=== PATIENT | male | born 1970 | race Caucasian/White ===

== ENCOUNTER 2019-10-27 19:38 | Emergency (ER) | payer BC, SELFPAY ==
[2019-10-27 19:53] VITALS: BP 142/102; PULSE 100; RESP 14; TEMP 36.6; O2SAT 96; BMI 30.1
--- NOTE | 2019-10-27 19:54 | XR_ITS ---
PROCEDURE: XR HAND RT MIN 3V CLINICAL INDICATION: hand injury playing ball Posttraumatic pain COMPARISON: No exams were available for comparison FINDINGS: No acute fracture is apparent. Bony hypertrophy noted at the 3rd and 5th metacarpals distally consistent with old fractures. Exostosis involves the proximal aspect of the proximal phalanx of the 3rd finger along the ulnar side. Mild osteoarthritic changes are present at the 1st metacarpophalangeal joint IMPRESSION: No acute findings. Dictated b Tobi Lau MD 10/28/2019 05:36 Tobi Lau MD in [place] 10/28/2019 05:36
--- NOTE | 2019-10-27 20:09 | HMH.EDUTC ---
[facility] [place] Clinical Impression: Right hand pain Sprain of right hand Qualifiers: Encounter type: initial encounter Qualified Code(s): S63.91XA - Sprain of unspecified part of right wrist and hand, initial encounter Disposition: Home, Self-Care Condition on Discharge: Good Instructions: DI for Hand Injury, DI for Hand Pain Additional Instructions: Rest the extremity, apply ice for 15 minutes as tolerated three or four times per day, Elevate the extremity as tolerated while you are resting. Take ibuprofen for pain. Follow up with Dr. Fall. I put in a referral but you need to call her office and schedule an appointment. Follow up with your regular doctor. GO TO THE ER FOR ANY WORSENING SYMPTOMS Referrals: PCP,No [Primary Care Provider] - Imani Fall MD [Physician] - Time of Disposition: 20:26 Medical Decision Making - Medical Records Medical records reviewed: No: I reviewed the patient's medical records. - Graham Inquiry Pt receiving controlled substance: No Vital Signs: 10/27/19 19:53 10/27/19 20:40 Temperature 98 F 98 F Temperature Source Oral Oral Pulse Rate 100 H Pulse Rate [Radial] 100 H Respiratory Rate 14 14 Blood Pressure 142/102 H Blood Pressure [Right Arm] 142/102 H Blood Pressure Mean [Right Arm] 115 Blood Pressure Source Automatic Cuff Blood Pressure Source [Right Arm] Automatic Cuff Blood Pressure Position Sitting Blood Pressure Position [Right Arm] Sitting 02 Sat by Pulse Oximetry 96 Oxygen Delivery Method Room Air Room Air - Radiology Data #1 Image(s): Hand Image Reviewed: Yes I reviewed the patient's radiology image, Yes I have reviewed radiologist's interpretation Preliminary Findings: No Fracture Seen PROCEDURE: XR HAND RT MIN 3V CLINICAL INDICATION: hand injury playing ball Posttraumatic pain COMPARISON: No exams were available for comparison FINDINGS: No acute fracture is apparent. Bony hypertrophy noted at the 3rd and 5th metacarpals distally consistent with old fractures. Exostosis involves the proximal aspect of the proximal phalanx of the 3rd finger along the ulnar side. Mild osteoarthritic changes are present at the 1st metacarpophalangeal joint IMPRESSION: No acute findings. Dictated b Tobi Lau MD 10/28/2019 05:36 Tobi Lau MD in [place] 10/28/2019 05:36 [facility] [place] - General Stated complaint: AO [id number] @1830 R hand injury Time Seen by Provider: 10/27/19 20:09 Mode of Arrival: Ambulatory Source of Information: Patient Limitations: No Limitations Description of Symptoms (Recalled from Triage Doc. by RN): injured right hand playing ball HEENT Symptoms (Recalled from RN notes): No Resp Symptoms (Recalled from RN notes): No Skin Symptoms (Recalled from RN notes): No MS Symptoms (Recalled from RN notes): Yes Functional Status (Recalled from RN notes): wnl - History of Present Illness Provider Complaint: He states that earlier today he was playing softball when he fell came down on his right hand. He has had pain of the hand and the index and middle fingers since then. - Worker's Comp Is this a Worker's Comp case?: No [facility] History - Hepatitis A Screen Drug use history?: No High risk sexual behaviors?: No History of sexually transmitted infection?: No Currently employed?: No Childcare worker?: No Do you have indoor plumbing?: Yes Do you have electricity?: Yes Attestation statement:: This patient has been screened for Hepatitis A risk factors. I have reviewed the patient's past medical history: Yes - Social History Alcohol Intake: never Occupational Status: employed ROS Obtained: Yes All systems reviewed & no additional complaints - Constitutional Constitutional: Denies chills, Denies fever(s) - Musculoskeletal Musculoskeletal: Reports as per HPI - Integumentary/Breasts Skin/Breast: Denies redness, Denies rash, Denies wounds - Neurologic Neurologic: Denies tingling/numbness/burning
[2019-10-27 20:40] VITALS: BP 142/102; PULSE 100; RESP 14; TEMP 36.6; O2SAT 96
== END 2019-10-27 20:42 | disposition home or self-care (01) ==
PROVIDERS: Emergency Provider Nurse Practitioner Family
DX: S63.91XA Sprain of unspecified part of right wrist and hand, initial encounter (principal); W01.0XXA Fall on same level from slipping, tripping and stumbling without subsequent striking against object, initial encounter; Y93.64 Activity, baseball; Y92.328 Other athletic field as the place of occurrence of the external cause
CPT/HCPCS: 29125; 73130; 99202

== ENCOUNTER → 2021-02-26 15:54 | Outpatient (CLI) | payer BC, SELFPAY | PROVIDERS: Visit Provider Nurse Practitioner | DX: Z20.822 Contact with and (suspected) exposure to COVID-19 (principal) | CPT/HCPCS: C9803; U0003; U0005 ==

== ENCOUNTER 2021-09-15 09:16 | Emergency (ER) | payer BC, SELFPAY ==
[2021-09-15 09:20] VITALS: BP 159/105; PULSE 79; RESP 18; TEMP 36.8; O2SAT 96; BMI 28.8
--- NOTE | 2021-09-15 09:54 | HMH.EDUTC ---
[facility] – [place] Dis[place] Clinical Impression: Abdominal pain Qualifiers: Abdominal location: unspecified location Qualified Code(s): R10.9 - Unspecified abdominal pain Gastritis Qualifiers: Gastritis type: unspecified gastritis Chronicity: acute Gastritis bleeding: without bleeding Qualified Code(s): K29.00 - Acute gastritis without bleeding Disposition: Home, Self-Care Condition on Discharge: Good Instructions: DI for Gastritis, DI for Acute Abdominal Pain Additional Instructions: You have been evaluated for abdominal pain, possibly due to fatty liver disease or gastritis. Please try taking daily omeprazole. Avoid eating within 1 hour of bedtime. Follow-up with a primary care doctor in 1 to 2 days for symptom recheck. You may need to see a GI doctor eventually for an EGD if your symptoms do not get better. Try to avoid alcohol, caffeine, tobacco use. Return to the emergency department for any new or worsening symptoms, pain, vomiting, other concerns. Prescriptions: Omeprazole [Omeprazole 20mg Capsule] 20 mg PO DAILY #30 cap Transmission Status: Received by [id number] Referrals: Joe Brown MD [Staff Physician] - Provider,MD Renard [Primary Care Provider] - Medical Decision Making - Graham Inquiry Pt receiving controlled substance: No Graham was queried for this patient: No Vital Signs: 09/15/21 09:20 09/15/21 10:05 09/15/21 12:17 Temperature 98.3 F 98.3 F Temperature Source Oral Oral Pulse Rate Pulse Rate [Right Brachial] 79 103 H 73 Respiratory Rate 18 16 Blood Pressure Blood Pressure [Right Arm] 159/105 H 145/100 H 129/90 Blood Pressure Mean [Right Arm] 123 115 103 Blood Pressure Source [Right Arm] Automatic Cuff Blood Pressure Position [Right Arm] Sitting Sitting 02 Sat by Pulse Oximetry 96 98 98 Oxygen Delivery Method Room Air Room Air Room Air 09/15/21 12:31 09/15/21 13:02 09/15/21 13:30 Temperature 97.9 F Temperature Source Pulse Rate 68 Pulse Rate [Right Brachial] 75 68 Respiratory Rate 18 Blood Pressure 138/91 H Blood Pressure [Right Arm] 143/98 H 138/91 H Blood Pressure Mean [Right Arm] 113 106 Blood Pressure Source [Right Arm] Blood Pressure Position [Right Arm] Sitting 02 Sat by Pulse Oximetry 97 98 Oxygen Delivery Method Room Air Room Air - Lab Data Lab Results 09/15/21 10:11: WBC 5.5, RBC 5.12, Hgb 15.8, Hct 45.9, MCV 89.7, MCH 30.8, MCHC 34.4, RDW 13.0, Plt Count 268, MPV 7.0 L, Neut % (Auto) 65.5, Lymph % (Auto) 24.8, [place] % (Auto) 6.4, Eos % (Auto) 2.4, Baso % (Auto) 1.0, Neut # (Auto) 3.6, Lymph # (Auto) 1.4, [place] # (Auto) 0.4, Eos # (Auto) 0.1, Baso # (Auto) 0.1 09/15/21 10:11: Sodium 137, Potassium 4.1, Chloride 103, Carbon Dioxide 27, Anion Gap 11.1, BUN 9, Creatinine 0.90, Estimated Creat Clear 123, Estimated GFR 89, Est GFR ( Amer) 107, Glucose 155 H, Calcium 9.6, Total Bilirubin 1.9 H, AST 102 H, ALT 81 H, Alkaline Phosphatase 142 H, Total Protein 8.7 H, Albumin 4.7, Globulin 4.0 H, Albumin/Globulin Ratio 1.2, Lipase 146 09/15/21 10:11: Lactate 1.1 Result diagrams: 09/15/21 10:11 09/15/21 10:11 Orders (Tests/Meds): ED MEDICATIONS Discontinued Medications Generic Name Dose Route Start Last Admin Trade Name Freq PRN Reason Stop Dose Admin Belladonna Alkaloids 60 ml 09/15/21 12:11 09/15/21 12:18 Gi Cocktail 60ml Udc PO 09/15/21 12:12 60 ml ONCE ONE Administration Hydromorphone HCl 0.5 mg 09/15/21 18:53 09/15/21 18:55 Hydromorphone 2mg/Ml Syringe IV 09/15/21 18:54 Not Given ONCE ONE Iopamidol 75 ml 09/15/21 11:17 09/15/21 11:22 Iopamidol-370 (76%);100ml Bottle IV 09/15/21 11:18 75 ml ONCE ONE Administration Ondansetron HCl 4 mg 09/15/21 09:57 09/15/21 10:24 Ondansetron 4mg/2ml Vial IV 09/15/21 09:58 4 mg ONCE ONE Administration Sodium Chloride 500 ml 09/15/21 09:57 09/15/21 10:23 Sodium Chloride 0.9% 500ml Bag IV 09/15/21 09:58 500 ml ONCE ON
--- NOTE | 2021-09-15 10:00 | PC.NURSE ---
PATIENT SENT TO ER PER Carmina TORRE APRN FOR FURTHER EVALUATION. REPORT GIVEN TO Ha MOURA APRN BY Carmina TORRE APRN
[2021-09-15 10:05] VITALS: BP 145/100; PULSE 103; RESP 16; TEMP 36.8; O2SAT 98; BMI 27.1
--- NOTE | 2021-09-15 10:06 | HMH.EDGENADL ---
ED Disposition Clinical Impression: Abdominal pain Qualifiers: Abdominal location: unspecified location Qualified Code(s): R10.9 - Unspecified abdominal pain Gastritis Qualifiers: Gastritis type: unspecified gastritis Chronicity: acute Gastritis bleeding: without bleeding Qualified Code(s): K29.00 - Acute gastritis without bleeding Disposition: Home, Self-Care Condition on Discharge: Good Instructions: DI for Acute Abdominal Pain, DI for Gastritis Additional Instructions: You have been evaluated for abdominal pain, possibly due to fatty liver disease or gastritis. Please try taking daily omeprazole. Avoid eating within 1 hour of bedtime. Follow-up with a primary care doctor in 1 to 2 days for symptom recheck. You may need to see a GI doctor eventually for an EGD if your symptoms do not get better. Try to avoid alcohol, caffeine, tobacco use. Return to the emergency department for any new or worsening symptoms, pain, vomiting, other concerns. Prescriptions: Omeprazole [Omeprazole 20mg Capsule] 20 mg PO DAILY #30 cap Transmission Status: Pending to [id number] Referrals: ProviderRenard MD [Primary Care Provider] - Joe Brown MD [Staff Physician] - Time of Disposition: 13:20 - Critical Care Critical Care Time: No Attestation: On 09/15/21, the high probability of a clinically significant, sudden or life threatening deterioration of the following system(s) required my full and direct attention, intervention and personal management. The time I documented below is in addition to time spent performing reported procedures but includes the following listed in this critical care notation. Medical Decision Making - Medical Records Medical records reviewed: Yes: I reviewed the patient's medical records. - [place] Inquiry Pt receiving controlled substance: No Vital Signs: 09/15/21 09:20 09/15/21 10:05 09/15/21 12:17 Temperature 98.3 F 98.3 F Temperature Source Oral Oral Pulse Rate [Right Brachial] 79 103 H 73 Respiratory Rate 18 16 Blood Pressure [Right Arm] 159/105 H 145/100 H 129/90 Blood Pressure Mean [Right Arm] 123 115 103 Blood Pressure Source [Right Arm] Automatic Cuff Blood Pressure Position [Right Arm] Sitting Sitting 02 Sat by Pulse Oximetry 96 98 98 Oxygen Delivery Method Room Air Room Air Room Air 09/15/21 12:31 09/15/21 13:02 Temperature Temperature Source Pulse Rate [Right Brachial] 75 68 Respiratory Rate Blood Pressure [Right Arm] 143/98 H 138/91 H Blood Pressure Mean [Right Arm] 113 106 Blood Pressure Source [Right Arm] Blood Pressure Position [Right Arm] Sitting 02 Sat by Pulse Oximetry 97 98 Oxygen Delivery Method Room Air Room Air - Lab Data Lab Results 09/15/21 10:11: WBC 5.5, RBC 5.12, Hgb 15.8, Hct 45.9, MCV 89.7, MCH 30.8, MCHC 34.4, RDW 13.0, Plt Count 268, MPV 7.0 L, Neut % (Auto) 65.5, Lymph % (Auto) 24.8, [place] % (Auto) 6.4, Eos % (Auto) 2.4, Baso % (Auto) 1.0, Neut # (Auto) 3.6, Lymph # (Auto) 1.4, [place] # (Auto) 0.4, Eos # (Auto) 0.1, Baso # (Auto) 0.1 09/15/21 10:11: Sodium 137, Potassium 4.1, Chloride 103, Carbon Dioxide 27, Anion Gap 11.1, BUN 9, Creatinine 0.90, Estimated Creat Clear 123, Estimated GFR 89, Est GFR ( Amer) 107, Glucose 155 H, Calcium 9.6, Total Bilirubin 1.9 H, AST 102 H, ALT 81 H, Alkaline Phosphatase 142 H, Total Protein 8.7 H, Albumin 4.7, Globulin 4.0 H, Albumin/Globulin Ratio 1.2, Lipase 146 09/15/21 10:11: Lactate 1.1 Result diagrams: 09/15/21 10:11 09/15/21 10:11 Orders (Tests/Meds): ED MEDICATIONS Discontinued Medications Generic Name Dose Route Start Last Admin Trade Name Freq PRN Reason Stop Dose Admin Belladonna Alkaloids 60 ml 09/15/21 12:11 09/15/21 12:18 Gi Cocktail 60ml Udc PO 09/15/21 12:12 60 ml ONCE ONE Administration Iopamidol 75 ml 09/15/21 11:17 09/15/21 11:22 Iopamidol-370 (76%);100ml Bottle IV 09/15/21 11:18 75 ml ONCE ONE Administration Ondansetr
--- NOTE | 2021-09-15 10:11 | CT_ITS ---
FINAL REPORT CLINICAL HISTORY: abd pain FINDINGS: CT OF THE ABDOMEN AND PELVIS WITH CONTRAST Axial CT images of the abdomen and pelvis were obtained after the administration of IV contrast. Coronal reformatted images were also obtained and reviewed.This study was performed with techniques to keep radiation doses as low as reasonably achievable (ALARA). Individualized dose reduction techniques using automated exposure control or adjustment of mA and/or kV according to the patient's size were employed. Abdomen: There is mild bibasilar atelectasis. The heart is normal in size. The liver is fatty infiltrated. The gallbladder is present. The spleen is unremarkable. No adrenal mass is present. The pancreas has an unremarkable appearance. The kidneys are normal, without evidence of mass or hydronephrosis. The aorta is normal in caliber. There is no free fluid or adenopathy. No mass or abnormal fluid collection is seen. Pelvis: The appendix normal. There is mild urinary bladder wall thickening which may be inflammatory. There is no evidence of mass or adenopathy. There is scattered diverticula without evidence of diverticulitis. There is no evidence of bowel obstruction. IMPRESSION: Fatty liver. Scattered diverticula without evidence of diverticulitis. Mild urinary bladder wall thickening may be inflammatory. Reviewed, Interpreted and Dictated by Tadeo Ellis III, MD Transcribed by Eliana Benson Authenticated and [facility] [place]
[2021-09-15 10:24] LABS: Basophils # 0.1 K/mm3 (0-0.2); Eosinophils # 0.1 K/mm3 (0.0-0.4); Eosinophils % 2.4 % (0.1-12.0); Hematocrit 45.9 % (42.0-52.0); Hemoglobin 15.8 g/dL (14.1-18.0); Lymphocytes # 1.4 K/mm3 (0.7-4.5); Lymphocytes % 24.8 % (10-50); Mean Corpuscular HGB Conc 34.4 g/dL (31.8-35.4); Mean Corpuscular Hemoglobin 30.8 pg (27.0-31.2); Mean Corpuscular Volume 89.7 fl (80-94); Monocytes # 0.4 K/mm3 (0.1-1.0); Monocytes % 6.4 % (1.7-9.3); Neutrophils # 3.6 K/mm3 (1.8-7.8); Neutrophils % 65.5 % (37.0-80.0); Platelet Count 268 K/mm3 (142-424); Red Blood Count 5.12 M/mm3 (4.60-6.20); White Blood Count 5.5 K/mm3 (4.8-10.8)
--- NOTE | 2021-09-15 10:24 | PC.NURSE ---
pt offered warm blankets pt declined
[2021-09-15 10:26] LABS: Chloride 103 mmol/L (98-107); Potassium 4.1 mmoL/L (3.5-5.1); Sodium 137 mmol/L (136-145)
[2021-09-15 10:28] LABS: Blood Urea Nitrogen 9 mg/dl (9-20)
[2021-09-15 10:29] LABS: Alanine Aminotransferase 81 U/L (12-78); Albumin Level 4.7 g/dl (3.5-5.0); Albumin/Globulin Ratio 1.2 (1.1-1.8); Alkaline Phosphatase 142 U/L (38-126); Anion Gap 11.1 mEq/L (5-15); Aspartate Amino Transferase 102 U/L (17-59); Bilirubin,Total 1.9 mg/dl (0.2-1.3); Calcium 9.6 mg/dl (8.4-10.2); Carbon Dioxide 27 mmol/L (22.0-30.0); Creatinine Clearance Estimated 123 mL/min (50-200); Estimated Glomerular Filt Rate 89 ml/min (>60); GFR (African American) 107 ML/MIN (>60); Glucose 155 mg/dl (74-100); Lactic Acid 1.1 mmol/L (0.7-2.1); Lipase 146 U/L (23-300); Total Protein,Serum 8.7 g/dl (6.3-8.2)
--- NOTE | 2021-09-15 11:14 | PC.NURSE ---
PT UPDATED ON PLAN OF CARE
--- NOTE | 2021-09-15 12:16 | PC.NURSE ---
PT UPDATED ON PLAN OF CARE
[2021-09-15 12:17] VITALS: BP 129/90; PULSE 73; O2SAT 98
[2021-09-15 12:31] VITALS: BP 143/98; PULSE 75; O2SAT 97
--- NOTE | 2021-09-15 12:34 | PC.NURSE ---
CALLED XRAY REGARDING CT READING
[2021-09-15 13:02] VITALS: BP 138/91; PULSE 68; O2SAT 98
--- NOTE | 2021-09-15 13:18 | PC.NURSE ---
AT BEDSIDE, DRINK PROVIDED
[2021-09-15 13:30] VITALS: BP 138/91; PULSE 68; RESP 18; TEMP 36.6
== END 2021-09-15 13:30 | disposition home or self-care (01) ==
LOC: UTC 09:18 → ER 09:55
PROVIDERS: Emergency Provider Emergency Medicine
DX: K29.00 Acute gastritis without bleeding; Z88.1 Allergy status to other antibiotic agents
CPT/HCPCS: 74177; 80053; 83605; 83690; 85025; 96374; 99284; J2405; Q9967

== ENCOUNTER 2022-09-01 16:26 | Emergency (ER) | payer MEDICARE, BC, SELFPAY ==
[2022-09-01] VITALS (7 sets, daily range): BP systolic 95–113; BP diastolic 56–83; PULSE 75–81; RESP 17; TEMP 36.8; O2SAT 97–98; BMI 29.2
--- NOTE | 2022-09-01 16:36 | CT_ITS ---
PROCEDURE INFORMATION: Exam: CT Head Without Contrast Exam date and time: 09/01/2022 4:49 PM Age: 51 years old Clinical indication: Injury or trauma; Fall; Abrasion; Jaw or chin; Additional info: Trauma from fall TECHNIQUE: Imaging protocol: Computed tomography of the head without contrast. Radiation optimization: All CT scans at this facility use at least one of these dose optimization techniques: automated exposure control; mA and/or kV adjustment per patient size (includes targeted exams where dose is matched to clinical indication); or iterative reconstruction. REPORTING DATA: Count of CT and Cardiac NM exams in prior 12 months: This patient has received [address] and 0 known cardiac nuclear medicine studies in the 12 months prior to the current study. COMPARISON: No relevant prior studies available. FINDINGS: Limitations: Axial soft tissue algorithm and sagittal reformatted imaging of the head are not provided, significantly limiting sensitivity of exam. Brain: No large intra- or extra-axial fluid collection. No significant mass effect or midline shift. Horowitz-white matter differentiation is grossly intact. Cerebral ventricles: No evidence of hydrocephalus. Paranasal sinuses: No air fluid levels in the visualized paranasal sinuses. Mastoid air cells: Visualized mastoid air cells are well aerated. Bones/joints: No evidence of depressed calvarial or skull base fracture. Soft tissues: Unremarkable. IMPRESSION: No evidence of acute intracranial abnormality within the limits of this exam.
--- NOTE | 2022-09-01 16:36 | CT_ITS ---
PROCEDURE INFORMATION: Exam: CT Cervical Spine Without Contrast Exam date and time: 09/01/2022 4:52 PM Age: 51 years old Clinical indication: Injury or trauma; Fall; Other: Pain; Additional info: Trauma from fall TECHNIQUE: Imaging protocol: Computed tomography of the cervical spine without contrast. Radiation optimization: All CT scans at this facility use at least one of these dose optimization techniques: automated exposure control; mA and/or kV adjustment per patient size (includes targeted exams where dose is matched to clinical indication); or iterative reconstruction. REPORTING DATA: Count of CT and Cardiac NM exams in prior 12 months: This patient has received [address] and 0 known cardiac nuclear medicine studies in the 12 months prior to the current study. COMPARISON: CT FACIAL BONES WO CON 09/01/2022 4:49 PM FINDINGS: Bones/joints: No evidence of acute fracture or malalignment. Lungs: No acute abnormality or suspicious mass lesion in the visualized lung apices. Soft tissues: Unremarkable. IMPRESSION: No evidence of acute osseous abnormality in the cervical spine.
--- NOTE | 2022-09-01 16:36 | CT_ITS ---
PROCEDURE INFORMATION: Exam: CT Maxillofacial Without Contrast Exam date and time: 09/01/2022 4:49 PM Age: 51 years old Clinical indication: Injury or trauma; Fall; Laceration; Jaw; Not specified; Without residual foreign body; Additional info: Trauma from fall TECHNIQUE: Imaging protocol: Computed tomography of the face without contrast. Radiation optimization: All CT scans at this facility use at least one of these dose optimization techniques: automated exposure control; mA and/or kV adjustment per patient size (includes targeted exams where dose is matched to clinical indication); or iterative reconstruction. REPORTING DATA: Count of CT and Cardiac NM exams in prior 12 months: This patient has received [address] and 0 known cardiac nuclear medicine studies in the 12 months prior to the current study. COMPARISON: No relevant prior studies available. FINDINGS: Limitations: Coronal and sagittal reformatted imaging with bone algorithm not provided, limiting sensitivity of exam. Photon starvation and beam hardening artifact from dental hardware severely degrades images, limiting visualization of surrounding structures. Orbital cavities: Orbits are normal. Globes are unremarkable. Bones/joints: No evidence of acute fracture or malalignment. Bilateral temporomandibular joints are congruent. Pterygoid plates are intact. Paranasal sinuses: No air-fluid levels. Soft tissues: Soft tissue laceration and edema overlying the chin. No evidence of radiopaque foreign body. Dental: Numerous dental caries and multiple periapical lucencies compatible with odontogenic abscesses, some with surrounding cortical erosion in both the mandible and maxilla. IMPRESSION: 1. No evidence of acute traumatic injury in the maxillofacial bones. 2. Numerous dental caries and multiple periapical lucencies compatible with odontogenic abscesses, some with surrounding cortical erosion in both the mandible and maxilla. No evidence of soft tissue abscess.
--- NOTE | 2022-09-01 16:38 | XR_ITS ---
PROCEDURE INFORMATION: Exam: XR Right Wrist Exam date and time: 09/01/2022 4:51 PM Age: 51 years old Clinical indication: Pain and injury or trauma; Fall; Swelling (edema); Wrist; Bilateral; Additional info: Trauma from fall TECHNIQUE: Imaging protocol: Radiologic exam of the right wrist. Views: 3 or more views. COMPARISON: CR XR HAND RT MIN 3V 10/27/2019 7:53 PM FINDINGS: Bones/joints: Bony remodeling in the 5th metacarpal compatible with prior boxer's fracture. Hypertrophic degenerative changes at the 4th and 5th carpometacarpal joints, not significantly changed from 10/27/2019 hand radiograph and likely chronic sequelae of prior trauma. Questionable cortical step-off along the anterior lunate seen on lateral view only. No definite acute fracture or malalignment. Soft tissues: Soft tissue edema noted. IMPRESSION: 1. Significant soft tissue edema with no definitive evidence of acute osseous abnormality in the right wrist. 2. Questionable cortical step-off along the anterior lunate seen on lateral view only. Please correlate with point tenderness. CT could better evaluate if clinically indicated. 3. Bony remodeling in the 5th metacarpal compatible with prior boxer's fracture.
--- NOTE | 2022-09-01 17:13 | PC.NURSE ---
Per physician, VO discontinue XR Cervical due to CT of C-spine ordered.
--- NOTE | 2022-09-01 17:20 | HMH.EDGENADL ---
Discharge Plan Disposition Chief Complaint: Fall Prescriptions Prescriptions: No Action omeprazole 20 MG capsule,delayed release(DR/EC) 20 mg PO DAILY Qty: 30 0RF Referrals Follow up/Referrals: Provider,Referral, [Primary Care Provider] - See instructions Discharge ED Provider: Niall Ag General Adult HPI General Chief complaint: Fall Stated complaint: AO 09/01 fall, lac on chin and left arm Time Seen by Provider: 09/01/22 16:51 Mode of Arrival: Ambulatory Source of Information: Patient Limitations: No Limitations Description of Symptoms (Recalled from ER Triage Doc. by RN): 51 M presents from home after tripping over his dogs while walking outside. Patient was seen by EMS on scene and came to ER via POV. Patient denies LOC, and was able to get up right after it happened. Patient does not take blood thinners. He reports a history of ALS. History of Present Illness HPI narrative: 51-year-old white male presents with an injury to his chin and left wrist following a fall at his home. The patient was dealing with the dogs tripped and landed on his right wrist and his chin. 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 He has no additional weakness or numbness since the fall as compared with before the fall. Related Data Previous Rx's Medication Instructions Recorded omeprazole 20 mg capsule,delayed 20 mg PO DAILY #30 caps 09/15/21 release Allergies Allergy/AdvReac Type Severity Reaction Status Date / Time amoxicillin Allergy Verified 09/15/21 09:34 [facility] Disclaimer: The information contained in this section may have been updated after the patient was seen, as this information can be updated by other users. Social History Smoking Status: Never smoker alcohol intake: never current occupational status: other Travel in the last 8 weeks: None ROS Obtained: Yes Systems reviewed as appropriate & no additional complaints except as documented Physical Exam General General appearance: alert and in no apparent distress Respiratory Respiratory exam: Present normal lung sounds bilaterally Cardiovascular Cardiovascular exam: Present regular rate and normal rhythm Neurological Exam Neurological exam: Present alert, oriented X3, CN II-XII intact and motor sensory deficit (Baseline) Medical Decision Making Medical Records MR Comment: 51-year-old white male sustained a fall earlier today landed on his right wrist and his chin primarily. Evaluations have included CT of his head facial cervical and x-ray of his right wrist. CTs were all negative however his right wrist raises the possibility of a fracture of one of the carpal bones. The patient is complaining of pain primarily in his teeth for which we will treat with Toradol 60 mg IM followed by prescription for naproxen 375 p.o. twice daily. We have repaired a laceration of his chin with running locking stitches of 4-0 Ethilon. Patient is to follow-up with his primary care provider for review and follow-up and treatment plan moving forward. He and his are present all questions are answered. Graham Inquiry Pt receiving controlled substance: No Vital Signs: 09/01/22 16:27 09/01/22 16:36 09/01/22 17:00 Temperature 98.2 F Temperature Source Oral Pulse Rate 75 79 Pulse Rate [Left] 81 Respiratory Rate 17 Blood Pressure 110/83 106/63 L Blood Pressure [Right Arm] 110/83 Blood Pressure Mean 90 84 Blood Pressure Mean [Right Arm] 92 Blood Pressure Source [Right Arm] Automatic Cuff Blood Pressure Position [Right Arm] Supine 02 Sat by Pulse Oximetry 97 97 98 Oxygen Delivery Method Room Air Room Air Room Air 09/01/22 17:30 09/01/22 18:00 Temperature Temperature Source Pulse Rate 80 Pulse Rate [Left] Respiratory Rate Blood Pressure 104/56 L 113/70 Blood Pressure [Right Arm] Blood Pressure Mean 72 77 Blood Pressure Mean [Right Arm] Blood Pr
--- NOTE | 2022-09-01 17:55 | PC.NURSE ---
Updated patient; Call garcia within reach
--- NOTE | 2022-09-01 18:15 | PC.NURSE ---
at bedside for laceration repair.
--- NOTE | 2022-09-01 18:29 | PC.NURSE ---
pt refused wrist splint.
--- NOTE | 2022-09-01 18:51 | PC.NURSE ---
Abrasions x 2 to left forearm cleansed with NS. Triple abx ointment applied with dry dressing. Pt tolerated well.
== END 2022-09-01 18:51 | disposition home or self-care (01) ==
PROVIDERS: Emergency Provider Emergency Medicine; PCP Family Medicine
DX: S01.81XA Laceration without foreign body of other part of head, initial encounter (principal); W01.0XXA Fall on same level from slipping, tripping and stumbling without subsequent striking against object, initial encounter; R22.41 Localized swelling, mass and lump, right lower limb; Z23 Encounter for immunization
CPT/HCPCS: 12013; 70450; 70486; 72040; 72125; 73110; 90715; 96372; 99284; 99285

== ENCOUNTER 2022-09-08 14:24 | Emergency (ER) | payer BC, MEDICARE, SELFPAY ==
[2022-09-08 14:30] VITALS: BP 115/74; PULSE 98; RESP 17; TEMP 36.7; O2SAT 98; BMI 25.1
[2022-09-08 14:35] VITALS: BP 115/74; PULSE 98; RESP 17; TEMP 36.7; O2SAT 98
== END 2022-09-08 14:38 | disposition home or self-care (01) ==
LOC: UTC 14:28
PROVIDERS: Emergency Provider Nurse Practitioner Family; PCP Family Medicine
DX: S01.81XD Laceration without foreign body of other part of head, subsequent encounter (principal); Z48.02 Encounter for removal of sutures

== ENCOUNTER 2023-02-02 16:38 | Emergency (ER) | payer MEDICARE, BC, SELFPAY ==
[2023-02-02 16:39] VITALS: BP 140/88; PULSE 77; RESP 18; TEMP 36.6; O2SAT 97; BMI 28.4
--- NOTE | 2023-02-02 16:46 | CT_ITS ---
PROCEDURE INFORMATION: Exam: CT Head Without Contrast Exam date and time: 02/02/2023 4:56 PM Age: 52 years old Clinical indication: Injury or trauma; Fall; Blunt trauma (contusions or hematomas); Additional info: Fall, forehead trauma TECHNIQUE: Imaging protocol: Computed tomography of the head without contrast. Radiation optimization: All CT scans at this facility use at least one of these dose optimization techniques: automated exposure control; mA and/or kV adjustment per patient size (includes targeted exams where dose is matched to clinical indication); or iterative reconstruction. REPORTING DATA: Count of CT and Cardiac NM exams in prior 12 months: This patient has received 3 known CTs and 0 known cardiac nuclear medicine studies in the 12 months prior to the current study. COMPARISON: CT HEAD/BRAIN WO CON 09/01/2022 4:49 PM FINDINGS: Brain: The visualized basilar cisterns are patent. The cortical/white matter interfaces are preserved throughout the brain. There is no evidence of mass, mass effect or midline shift. There is no evidence of acute hemorrhage within the brain parenchyma or the subarachnoid space. The craniocervical junction is within range of normal. No significant white matter lucencies. Cerebral ventricles: The ventricular system is normal in size and distribution. Paranasal sinuses: Minor mucoperiosteal thickening involves the inferior frontal sinuses and left maxillary sinus.The visualized portions of the sinuses are otherwise clear. Mastoid air cells: The mastoid sinuses are normal. Orbital cavities: The orbits are normal. Bones/joints: There is no evidence of acute fracture. Soft tissues: There is minor fat stranding and soft tissue thickening in the left parasagittal supraorbital region consistent with post contusive edema/hematoma. IMPRESSION: 1. No acute intracranial abnormality. 2. Minor fat stranding and soft tissue thickening in the left parasagittal supraorbital region consistent with post contusive edema/hematoma.
--- NOTE | 2023-02-02 16:47 | HMH.EDGENADL ---
Discharge Plan Disposition Patient Disposition: Home, Self-Care Chief Complaint: Wound/Laceration Prescriptions Prescriptions: No Action omeprazole 20 MG capsule,delayed release(DR/EC) 20 mg PO DAILY Qty: 30 0RF naproxen 375 mg tablet 375 mg PO BID Qty: 20 0RF Referrals Follow up/Referrals: Wolfgang Bauer MD [Primary Care Provider] - See instructions Fernando Sevilla DO [Staff Physician] - See instructions Activity Restrictions/Add. Instructions Additional Instructions/Restrictions: At this time it was felt you are safe to be discharged home. If new or worsening symptoms please do not hesitate to return the emergency department. Please follow-up with your family doctor in 7 to 10 days for suture removal. Please wear your sling for your clavicle fracture and schedule follow-up with Dr. Sevilla. Clinical Impressions Clinical Impression: Blunt head trauma, Forehead laceration, Clavicle fracture Instructions Patient Instructions: DI for Laceration Repair Discharge ED Provider: Colin Mendoza General Adult HPI General Chief complaint: Wound/Laceration Stated complaint: AO11/ fall forehead lac, LT shoulder pain Time Seen by Provider: 02/02/23 16:42 History of Present Illness HPI narrative: Patient is a 52-year-old male with past medical history of ALS who presents emergency department for evaluation of traumatic injury sustained in a fall. Patient tripped on carpet and struck his head on the door frame, no loss of consciousness with resultant trauma over his forehead and left shoulder. Patient is complaining of left shoulder pain as well as open wounds on his forehead. No other acute complaints at this time. At baseline patient is ambulatory however has difficulty moving his arms which contributed to him not able to brace himself for his fall. Tdap up-to-date. Related Data Previous Rx's Medication Instructions Recorded omeprazole 20 mg capsule,delayed 20 mg PO DAILY #30 caps 09/15/21 release naproxen 375 mg tablet 375 mg PO BID #20 tabs 09/01/22 Allergies Allergy/AdvReac Type Severity Reaction Status Date / Time amoxicillin Allergy Verified 09/15/21 09:34 [facility] Disclaimer: The information contained in this section may have been updated after the patient was seen, as this information can be updated by other users. Social History Smoking Status: Never smoker alcohol intake: never current occupational status: other Travel in the last 8 weeks: None ROS Obtained: Yes Systems reviewed as appropriate & no additional complaints except as documented Physical Exam General General appearance: alert and in no apparent distress Head Head exam: normocephalic and other (5 cm serpiginous laceration over the forehead, 2.5 cm linear laceration inferior to the serpiginous laceration on the forehead, oozing blood.) Eye Eye exam: Present PERRL and EOMI ENT ENT exam: Present mucous membranes moist Neck Neck exam: Present normal inspection Chest Chest inspection: Present normal inspection and symmetric chest wall rise Respiratory Respiratory exam: Present normal lung sounds bilaterally; Absent respiratory distress Cardiovascular Cardiovascular exam: Present regular rate and normal rhythm Abdominal Exam Abdominal exam: Present soft; Absent tenderness Extremities Exam Extremities exam: Present normal inspection and other (Limited painful range of motion at the left shoulder secondary to pain. Palpable 2+ left radial pulse.) Neurological Exam Neurological exam: Present alert and oriented X3 Psychiatric Psychiatric exam: Present normal affect Skin Skin exam: Present warm and dry Medical Decision Making Graham Inquiry Pt receiving controlled substance: No Vital Signs: 02/02/23 16:39 Temperature 97.8 F Temperature Source Oral Pulse Rate [Right] 77 Respiratory Rate 18 Blood Pressure [Right Arm] 140/88 Blood Pressure Mean [Right Arm] 105 Blood Pressure Source [Right
--- NOTE | 2023-02-02 16:48 | XR_ITS ---
PROCEDURE INFORMATION: Exam: XR Left Humerus Exam date and time: 02/02/2023 4:55 PM Age: 52 years old Clinical indication: Injury or trauma; Fall; Blunt trauma (contusions or hematomas); Arm, upper; Left TECHNIQUE: Imaging protocol: Radiologic exam of the left humerus. Views: 2 or more views. COMPARISON: CR XR SHOULDER LT MIN 2V 02/02/2023 4:52 PM FINDINGS: Bones/joints: There is an acute nondisplaced fracture involving the distal left clavicle, approximately 12 mm proximal to the AC joint. No significant displacement or angulation. No additional acute fractures. Mild degenerative changes involve the AC joint. Mild degenerative changes involve the glenohumeral joint. No glenohumeral dislocation. Soft tissues: No significant soft tissue edema. No subcutaneous emphysema or radiopaque foreign bodies. Visualized left lung appears clear. No pneumothorax. IMPRESSION: Acute nondisplaced fracture involving the distal left clavicle.
--- NOTE | 2023-02-02 16:48 | XR_ITS ---
PROCEDURE INFORMATION: Exam: XR Left Shoulder Exam date and time: 02/02/2023 4:52 PM Age: 52 years old Clinical indication: Injury or trauma; Fall; Blunt trauma (contusions or hematomas); Shoulder; Left TECHNIQUE: Imaging protocol: Radiologic exam of the left shoulder. Views: 2 or more views. COMPARISON: CT CERVICAL SPINE WO CON 09/01/2022 4:52 PM FINDINGS: Bones/joints: There is an acute nondisplaced fracture involving the distal left clavicle, approximately 12 mm proximal to the AC joint. No significant displacement or angulation. No additional acute fractures. Mild degenerative changes involve the AC joint. Mild degenerative changes involve the glenohumeral joint. No glenohumeral dislocation. Soft tissues: No significant soft tissue edema. No subcutaneous emphysema or radiopaque foreign bodies. Visualized left lung appears clear. No pneumothorax. IMPRESSION: Acute nondisplaced fracture involving the distal left clavicle.
[2023-02-02 17:45] VITALS: BP 141/86; PULSE 78; RESP 16; TEMP 36.6; O2SAT 98
--- NOTE | 2023-02-02 19:08 | PC.NURSE ---
Accessed pts chart to get information for orthopedic paperwork. CR
== END 2023-02-02 17:48 | disposition home or self-care (01) ==
PROVIDERS: Emergency Provider Emergency Medicine; PCP Family Medicine
DX: S09.8XXA Other specified injuries of head, initial encounter (principal); S01.81XA Laceration without foreign body of other part of head, initial encounter; S42.035A Nondisplaced fracture of lateral end of left clavicle, initial encounter for closed fracture; W01.198A Fall on same level from slipping, tripping and stumbling with subsequent striking against other object, initial encounter
CPT/HCPCS: 12014; 70450; 73030; 73060; 96374; 99284

== ENCOUNTER 2023-02-12 17:08 | Emergency (ER) | payer MEDICARE, BC, SELFPAY ==
[2023-02-12 17:10] VITALS: BP 131/88; PULSE 76; RESP 18; TEMP 37.1; O2SAT 99; BMI 27.1
[2023-02-12 17:17] VITALS: BP 131/88; PULSE 76; RESP 18; TEMP 37.1; O2SAT 99
== END 2023-02-12 17:19 | disposition home or self-care (01) ==
LOC: UTC 17:13
PROVIDERS: Emergency Provider Nurse Practitioner; PCP Physician Assistant
DX: Z48.02 Encounter for removal of sutures (principal); S01.81XA Laceration without foreign body of other part of head, initial encounter

== ENCOUNTER → 2023-03-07 14:01 | Outpatient (CLI) | payer MEDICARE, BC, SELFPAY ==
--- NOTE | 2023-03-07 14:08 | XR_ITS ---
FINAL REPORT TECHNIQUE: Left clavicle 2 views CLINICAL HISTORY: Left Clavicle fx COMPARISON: 02/02/2023 FINDINGS: LEFT CLAVICLE: Views of the left clavicle were obtained in this patient with a history of distal left clavicle fracture. There has been slight bone resorption at the fracture site in the distal clavicle with increased callus formation. The bony alignment remains normal. No new fracture or dislocation is identified. IMPRESSION: Left clavicular fracture with slight increased callus formation since the prior films of February 02. Reviewed, Interpreted and Dictated by Sami Fields MD Transcribed by Thelma Cortez Authenticated and [facility]
== END ==
PROVIDERS: PCP Family Medicine; Visit Provider Orthopaedic Surgery
DX: S42.002A Fracture of unspecified part of left clavicle, initial encounter for closed fracture (principal); Y99.9 Unspecified external cause status
CPT/HCPCS: 73000

== ENCOUNTER 2023-06-13 15:36 | Emergency (ER) | payer MEDICARE, BC, SELFPAY ==
[2023-06-13 16:10] VITALS: BP 121/80; PULSE 84; RESP 16; TEMP 36.6; O2SAT 100; BMI 29.4
[2023-06-13 16:41] VITALS: BP 121/80; PULSE 84; RESP 16; TEMP 36.6; O2SAT 100
--- NOTE | 2023-06-13 16:41 | PC.NURSE ---
Removed 5 jero from head
== END 2023-06-13 16:41 | disposition home or self-care (01) ==
LOC: UTC 15:42
PROVIDERS: Emergency Provider Nurse Practitioner; PCP Family Medicine
DX: Z48.02 Encounter for removal of sutures (principal)

== ENCOUNTER 2024-01-03 03:41 | Emergency (ER) | payer MEDICARE, BC, SELFPAY ==
[2024-01-03 03:43] VITALS: BP 155/94; PULSE 66; RESP 20; TEMP 36.4; O2SAT 98; BMI 28.1
--- NOTE | 2024-01-03 04:05 | ECG_ITS ---
APPROVED REPORT Exam: Resting ECG HR:63 bpm ECG Measurements Heart Rate 63 AXES ME 184 P 58 QRSd 90 QRS 36 QT 407 T 88 QTc 413 Conclusion SINUS RHYTHM NONSPECIFIC ST & T-WAVE ABNORMALITY BORDERLINE ECG UNCONFIRMED REPORT Electronically signed by : CORINNE KIRKPATRICK, 01/03/2024 05:34:56
--- NOTE | 2024-01-03 04:11 | CT_ITS ---
PROCEDURE INFORMATION: Exam: CTA Abdomen and Pelvis With Contrast Exam date and time: 01/03/2024 4:48 AM Age: 53 years old Clinical indication: Abdominal pain; Acute; Additional info: Severe abd pain radiating to back TECHNIQUE: Imaging protocol: Computed tomographic angiography of the abdomen and pelvis with contrast. Exam focused on the arteries. 3D rendering (Not supervised by radiologist): MIP and/or 3D reconstructed images were created by the technologist. Radiation optimization: All CT scans at this facility use at least one of these dose optimization techniques: automated exposure control; mA and/or kV adjustment per patient size (includes targeted exams where dose is matched to clinical indication); or iterative reconstruction. Contrast material: ISOVUE; Contrast volume: 80 ml; Contrast route: INTRAVENOUS (IV); COMPARISON: CT ABDOMEN PELVIS W CON 09/15/2021 10:50 AM FINDINGS: Aorta: No aortic aneurysm. No aortic dissection. 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 However this is not significantly changed from the prior study. Renal arteries: No occlusion or significant stenosis. Right iliac arteries: No occlusion or significant stenosis. Left iliac arteries: No occlusion or significant stenosis. Liver: No mass. Gallbladder and biliary ducts: The gallbladder is hydropic. The gallbladder is hydropic however no stones wall thickening or pericholecystic fluid is identified. Pancreas: Unremarkable. No mass. No ductal dilation. Spleen: Unremarkable. No splenomegaly. Adrenal glands: Unremarkable. No mass. Kidneys and ureters: Unremarkable. No solid mass. No hydronephrosis. Stomach and bowel: No bowel wall thickening ileus obstruction or other acute process is identified. Appendix: No evidence of appendicitis. Intraperitoneal space: Unremarkable. No free air. No significant fluid collection. Lymph nodes: Unremarkable. No enlarged lymph nodes. Urinary bladder: Unremarkable. No mass. Reproductive: Unremarkable as visualized. Bones/joints: Mild degenerative disc disease is noted. Soft tissues: Unremarkable. IMPRESSION: 1. 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 2. The superior mesenteric artery and inferior mesenteric artery are unremarkable, no bowel or bowel wall changes are noted to suggest ischemia or other acute process.
[2024-01-03] MEDS: ONDANSETRON 4MG/2ML VIAL 4 MG IV (04:15)
[2024-01-03] MEDS: BELLADONNA ALKALOIDS 60 ML ML PO (04:16)
[2024-01-03] MEDS: KETOROLAC 30MG/ML VIAL 30 MG IV (04:16)
[2024-01-03] MEDS: ACETAMINOPHEN 1,000MG/100ML VIAL 1000 MG IV (04:16)
[2024-01-03 04:19] LABS: Basophils # 0.1 K/mm3 (0-0.2); Basophils % 0.8 % (0.1-2.0); Eosinophils # 0.3 K/mm3 (0.0-0.4); Eosinophils % 3.5 % (0.1-12.0); Hemoglobin 15.6 g/dL (14.1-18.0); Lymphocytes # 1.4 K/mm3 (0.7-4.5); Lymphocytes % 14.7 % (10-50); Mean Corpuscular HGB Conc 33.1 g/dL (31.8-35.4); Mean Corpuscular Hemoglobin 32.3 pg (27.0-31.2); Mean Corpuscular Volume 97.7 fl (80-94); Monocytes # 0.4 K/mm3 (0.1-1.0); Monocytes % 3.7 % (1.7-9.3); Neutrophils # 7.6 K/mm3 (1.8-7.8); Neutrophils % 77.3 % (37.0-80.0); Platelet Count 202 K/mm3 (142-424); Red Blood Count 4.81 M/mm3 (4.60-6.20); Red Cell Distribution Width 14.3 % (11.5-17.5); White Blood Count 9.8 K/mm3 (4.8-10.8)
[2024-01-03 04:23] LABS: Albumin Level 4.3 g/dl (3.5-5.0); Chloride 106 mmol/L (98-107)
[2024-01-03 04:24] LABS: Sodium 136 mmol/L (136-145)
[2024-01-03 04:26] LABS: Alanine Aminotransferase 46 U/L (12-78); Alkaline Phosphatase 143 U/L (38-126); Aspartate Amino Transferase 43 U/L (17-59); Blood Urea Nitrogen 11 mg/dl (9-20); Carbon Dioxide 24 mmol/L (22.0-30.0); Creatinine Clearance Estimated 210 mL/min (50-200); Estimated Glomerular Filt Rate 173 ml/min (>60); GFR (African American) 209 ML/MIN (>60)
[2024-01-03 04:27] LABS: Albumin/Globulin Ratio 1.3 (1.1-1.8); Calcium 9.4 mg/dl (8.4-10.2); Globulin 3.4 g/dL (1.3-3.2); Glucose 161 mg/dl (74-100); Lipase 241 U/L (23-300); Total Protein,Serum 7.7 g/dl (6.3-8.2)
[2024-01-03 04:40] LABS: Troponin I < 0.01 ng/ml (0.00-0.034)
--- NOTE | 2024-01-03 04:51 | PC.NURSE ---
pt assisted to CT scan
[2024-01-03] MEDS: 0.9 % SODIUM CHLORIDE 50 ML VIAL IV (04:52)
[2024-01-03] MEDS: IOPAMIDOL-370 (76%);100ML BOTTLE 80 ML IV (04:52)
[2024-01-03] MEDS: SODIUM CHLORIDE 0.9% 10ML SYR (RAD ONLY) 10 ML IV (04:52)
[2024-01-03 04:57] LABS: HIV (1&2) Antibody Rapid NONREACTIVE (NONREACTIVE)
[2024-01-03 05:00] VITALS: BP 156/98; PULSE 87; O2SAT 95
[2024-01-03 05:13] VITALS: BP 156/98; PULSE 99; RESP 20; O2SAT 95
[2024-01-03 05:30] VITALS: BP 149/100; PULSE 96; O2SAT 96
--- NOTE | 2024-01-03 06:20 | ED_ITS ---
Discharge Plan Disposition Patient Disposition: Home, Self-Care Condition: Good Prescriptions Prescriptions: No Action oxycodone 5 mg tablet 5 mg PO Q8H PRN (Reason: severe pain (scale score 7-10)) Qty: 30 0RF meloxicam 15 mg tablet See Rx Instructions .ROUTE .COMPLEX Qty: 30 0RF Dose Instruction: Take 1 tablet by mouth once daily Rx Instructions: Take 1 tablet by mouth once daily omeprazole 20 MG capsule,delayed release(DR/EC) 20 mg PO DAILY Qty: 30 0RF Referrals Follow up/Referrals: Cecilio Vyas II, MD [Staff Physician] - See instructions Lina Rendon APRN [Primary Care Provider] - See instructions Activity Restrictions/Add. Instructions Additional Instructions/Restrictions: Call your family doctor to establish care for this visit to the emergency department and schedule follow-up within 48 hours to ensure improvement. If you have any worsening of your condition or any other concerning signs or symptoms, return to the emergency department or your primary care doctor for further evaluation. If you continue having symptoms, talk to your family doctor about referral to Dr. Vyas, his information is listed here. He is a engineer booster and exhauster and will be able to further evaluate her symptoms. Clinical Impressions Clinical Impression: Enlarged gallbladder Abdominal pain Qualifiers: Abdominal location: epigastric Qualified Code(s): R10.13 - Epigastric pain Instructions Patient Instructions: DI for Acute Abdominal Pain Print Language Print Language: Uzbek Discharge ED Provider: Levar Eng General Adult HPI <Levar Eng MD - Last Filed: 01/03/24 23:29> General Chief complaint: Abdominal Pain Stated complaint: abd pain, has ALS Time Seen by Provider: 01/03/24 03:50 Mode of Arrival: Wheelchair Source of Information: Patient and Spouse Limitations: Physical Limitations Description of Symptoms (Recalled from ER Triage Doc. by RN): Patient presented to the ED for abd pain. Patient states he woke up about 0030 tonight with 8/10 epigastric pressure type pain that radiates into his back in the same area. He did have a moment of nausea that resolved on its own. No vomiting, diarrhea, or fever. On a side note, patient has history of ALS. History of Present Illness HPI narrative: 53-year-old male with history of ALS presents for abdominal pain. He reports that he does not sleep well normally, but he awoke around 12:30 AM with epigastric abdominal pain. He reports it radiates into his back but does not radiate to the right side over the left side or his chest. He reports some nausea briefly but denies any vomiting. No recent fever or illness, reports normal bowel movements for him. He reports chronic shortness of breath but no changes. Related Data Previous Rx's ?Medication ?Instructions ?Recorded omeprazole 20 mg capsule,delayed 20 mg PO DAILY #30 caps 09/15/21 release oxycodone 5 mg tablet 5 mg PO Q8H PRN severe pain (scale 02/07/23 score 7-10) #30 tabs meloxicam 15 mg tablet See Rx Instructions .Route 07/26/23 .COMPLEX #30 tabs Allergies Allergy/AdvReac Type Severity Reaction Status Date / Time amoxicillin Allergy Verified 03/07/23 14:40 PFS <Levar Eng MD - Last Filed: 01/03/24 23:29> [facility] Disclaimer: The information contained in this section may have been updated after the patient was seen, as this information can be updated by other users. Social History Smoking Status: Never smoker alcohol intake: never current occupational status: other Travel in the last 8 weeks: None Other Medical History Have you received the Flu Vaccine for this season: No Have you received the Pneumonia Vaccine: No <Levar Eng MD - Last Filed: 01/03/24 23:29> ROS Obtained: Yes All systems reviewed & no additional complaints except as documented Physical Exam <Levar Eng MD - Last Filed: 01/03/24 23:29> General General appearance: alert and in no apparent distress Head Head exam: atraumatic and normocephalic Eye Eye exam: Present normal appearance, PERRL and EOMI ENT ENT exam: Present normal oropharynx and normal external ear exam Neck Neck exam: Present normal inspection and full ROM Chest Chest inspection: Present normal inspection and symmetric chest wall rise; Absent tenderness Respiratory Respiratory exam: Present normal lung sounds bilaterally; Absent respiratory distress Cardiovascular Cardiovascular exam: Present regular rate and normal rhythm Abdominal Exam Abdominal exam: Present soft and tenderness (Minimal, epigastric, no right upper quadrant tenderness); Absent distention or guarding Extremities Exam Extremities exam: Present normal inspection; Absent edema or joint swelling Back Exam Back exam: Present normal inspection; Absent tenderness Neurological Exam Neurological exam: Present alert, oriented X3 and motor sensory deficit (Generalized weakness) Psychiatric Psychiatric exam: Present normal affect and normal mood Skin Skin exam: Present warm, dry and normal color Lymphatic Lymphatic Findings: no adenopathy Medical Decision Making <Levar Eng MD - Last Filed: 01/03/24 23:29> Medical Records Medical records reviewed: Yes I reviewed the patient's medical records. Screening: Per USPSTF and CDC recommendations, given the prevalence of disease in our region, it is our hospital?s policy to screen for HIV and viral Hepatitis for all patients aged 18 and over and those with ongoing risk factors. [place] Inquiry Pt receiving controlled substance: No [place] was queried for this patient: No Vital Signs: 01/03/24 03:43 01/03/24 05:00 01/03/24 05:13 Temperature 97.6 F Temperature Source Oral Pulse Rate 87 99 H Pulse Rate [Left Brachial] 66 Respiratory Rate 20 20 Blood Pressure 156/98 H 156/98 H Blood Pressure [Left Arm] 155/94 H Blood Pressure Mean [Left Arm] 114 Blood Pressure Source Blood Pressure Position 02 Sat by Pulse Oximetry 98 95 95 Oxygen Delivery Method Room Air Room Air 01/03/24 05:30 01/03/24 07:48 Temperature 97.9 F Temperature Source Oral Pulse Rate 96 H 80 Pulse Rate [Left Brachial] Respiratory Rate 16 Blood Pressure 149/100 H 129/88 Blood Pressure [Left Arm] Blood Pressure Mean [Left Arm] Blood Pressure Source Automatic Cuff Blood Pressure Position Sitting 02 Sat by Pulse Oximetry 96 Oxygen Delivery Method Room Air Lab Data Lab results reviewed: Yes I reviewed the patient's lab results. Lab Results 01/03/24 03:50: WBC 9.8, RBC 4.81, Hgb 15.6, Hct 47.0, MCV 97.7 H, MCH 32.3 H, MCHC 33.1, RDW 14.3, Plt Count 202, MPV 8.0, Neut % (Auto) 77.3, Lymph % (Auto) 14.7, [place] % (Auto) 3.7, Eos % (Auto) 3.5, Baso % (Auto) 0.8, Neut # (Auto) 7.6, Lymph # (Auto) 1.4, [place] # (Auto) 0.4, Eos # (Auto) 0.3, Baso # (Auto) 0.1, Sodium 136, Potassium 4.0, Chloride 106, Carbon Dioxide 24, Anion Gap 10.0, BUN 11, Creatinine 0.50 L, Estimated Creat Clear 210, Estimated GFR 173, Est GFR ( Amer) 209, Glucose 161 H, Calcium 9.4, Total Bilirubin 1.0, AST 43, ALT 46, Alkaline Phosphatase 143 H, Troponin I < 0.01, Total Protein 7.7, Albumin 4.3, Globulin 3.4 H, Albumin/Globulin Ratio 1.3, Lipase 241, HIV 1&2 Antibody Rapid Nonreactive 01/03/24 06:23: Troponin I < 0.01 01/03/24 03:50 01/03/24 03:50 Orders (Tests/Meds): ED MEDICATIONS Discontinued Medications Generic Name Dose Route Start Last Admin Trade Name Freq PRN Reason Stop Dose Admin Acetaminophen 1,000 mg 01/03/24 04:10 01/03/24 04:16 Acetaminophen 1,000mg/100ml Vial IV 01/03/24 04:11 1,000 mg ONCE ONE Administration Belladonna Alkaloids 60 ml 01/03/24 04:10 01/03/24 04:16 Belladonna Alkaloids 60 Ml Ml PO 01/03/24 04:11 60 ml ONCE ONE Administration Iopamidol 80 ml 01/03/24 04:51 01/03/24 04:52 Iopamidol-370 (76%);100ml Bottle IV 01/03/24 04:52 80 ml ONCE ONE Administration Ketorolac Tromethamine 30 mg 01/03/24 04:10 01/03/24 04:16 Ketorolac 30mg/Ml Vial IV 01/03/24 04:11 30 mg ONCE ONE Administration Ondansetron HCl 4 mg 01/03/24 04:10 01/03/24 04:15 Ondansetron 4mg/2ml Vial IV 01/03/24 04:11 4 mg ONCE ONE Administration Sodium Chloride 50 ml 01/03/24 04:51 01/03/24 04:52 0.9 % Sodium Chloride 50 Ml Vial IV 01/03/24 04:52 50 ml ONCE ONE Administration Sodium Chloride 10 ml 01/03/24 04:51 01/03/24 04:52 Sodium Chloride 0.9% 10ml Syr (Rad Only) IV 01/03/24 04:52 10 ml ONCE ONE Administration ORDERS Category Date Time Status CT angio abdomen pelvis Stat Cat Scan 01/03/24 04:11 Completed CBC w/Auto Diff [Complete Blood Count Auto Diff] Stat Lab 01/03/24 03:50 Completed CMP [Comprehensive Metabolic Panel] Stat Lab 01/03/24 03:50 Completed HIV (1&2) Antibody Rapid Stat Lab 01/03/24 03:50 Completed Hep C Ab with Reflex to RNA Stat Lab 01/03/24 03:50 Received Lipase Stat Lab 01/03/24 03:50 Completed Troponin I Q3H Lab 01/03/24 03:50 Completed Troponin I Q3H Lab 01/03/24 06:23 Completed ECG Data Tracing #1: I reviewed this ECG and interpreted as documented below: Sinus rhythm, rate of 63, no concerning ST changes, isolated Q-wave in lead III, wandering baseline limits interpretation. ECG initial impression date: 01/03/24 ECG initial impression time: 04:05 HEART Score History (anamnesis): Slightly suspicious ECG: Normal Age: 45-65 years Risk factors: 1-2 risk factors Troponin: </= normal limit HEART Score: 2 Medical Decision Narrative: 53-year-old male with history of ALS presents for acute epigastric abdominal pain radiating to the back. History was obtained via interactive discussion with patient, family, chart review. On arrival, patient is [afebrile, hemodynamically stable, satting appropriately, alert, oriented x4, GCS 15], moving all extremities spontaneously. Full physical exam performed and significant for minimal epigastric tenderness, generalized muscle weakness stable from baseline. Differential includes but is not limited to gastritis, gastroenteritis, pancreatitis, cholecystitis, choledocholithiasis, mesenteric ischemia, acute aortic syndrome, ACS Patient was given Tylenol Toradol for symptomatic management and correction of underlying abnormalities. Workup initiated including CBC CMP lipase troponin x 2 CTA abdomen pelvis. On re-evaluation, patient [remains afebrile, HD stable.] He reports marked symptomatic improvement. Laboratory workup independently interpreted by me and significant for minimally elevated alk phos, otherwise normal lipase, normal creatinine, no significant electrolyte derangements, negative troponin, no leukocytosis. Imaging independently interpreted by me and significant for enlarged gallbladder without pericholecystic fluid or wall thickening, no acute aortic pathology, no pancreatitis. 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 See radiology read for full review of final results. Given patient history, exam and workup, patient's presentation most likely represents abdominal of uncertain etiology, could be related to acid reflux/stomach irritation. No evidence of acute cholecystitis, pancreatitis or mesenteric pathology. Repeat troponin negative. These findings were communicated with patient. He was discharged in stable condition with return precautions. <Champ Springer MD - Last Filed: 01/03/24 11:09> Vital Signs: 01/03/24 03:43 01/03/24 05:00 01/03/24 05:13 Temperature 97.6 F Temperature Source Oral Pulse Rate 87 99 H Pulse Rate [Left Brachial] 66 Respiratory Rate 20 20 Blood Pressure 156/98 H 156/98 H Blood Pressure [Left Arm] 155/94 H Blood Pressure Mean [Left Arm] 114 Blood Pressure Source Blood Pressure Position 02 Sat by Pulse Oximetry 98 95 95 Oxygen Delivery Method Room Air Room Air 01/03/24 05:30 01/03/24 07:48 Temperature 97.9 F Temperature Source Oral Pulse Rate 96 H 80 Pulse Rate [Left Brachial] Respiratory Rate 16 Blood Pressure 149/100 H 129/88 Blood Pressure [Left Arm] Blood Pressure Mean [Left Arm] Blood Pressure Source Automatic Cuff Blood Pressure Position Sitting 02 Sat by Pulse Oximetry 96 Oxygen Delivery Method Room Air Lab Data Lab Results 01/03/24 03:50: WBC 9.8, RBC 4.81, Hgb 15.6, Hct 47.0, MCV 97.7 H, MCH 32.3 H, MCHC 33.1, RDW 14.3, Plt Count 202, MPV 8.0, Neut % (Auto) 77.3, Lymph % (Auto) 14.7, [place] % (Auto) 3.7, Eos % (Auto) 3.5, Baso % (Auto) 0.8, Neut # (Auto) 7.6, Lymph # (Auto) 1.4, [place] # (Auto) 0.4, Eos # (Auto) 0.3, Baso # (Auto) 0.1, Sodium 136, Potassium 4.0, Chloride 106, Carbon Dioxide 24, Anion Gap 10.0, BUN 11, Creatinine 0.50 L, Estimated Creat Clear 210, Estimated GFR 173, Est GFR ( Amer) 209, Glucose 161 H, Calcium 9.4, Total Bilirubin 1.0, AST 43, ALT 46, Alkaline Phosphatase 143 H, Troponin I < 0.01, Total Protein 7.7, Albumin 4.3, Globulin 3.4 H, Albumin/Globulin Ratio 1.3, Lipase 241, HIV 1&2 Antibody Rapid Nonreactive 01/03/24 06:23: Troponin I < 0.01 Orders (Tests/Meds): ED MEDICATIONS Discontinued Medications Generic Name Dose Route Start Last Admin Trade Name Freq PRN Reason Stop Dose Admin Acetaminophen 1,000 mg 01/03/24 04:10 01/03/24 04:16 Acetaminophen 1,000mg/100ml Vial IV 01/03/24 04:11 1,000 mg ONCE ONE Administration Belladonna Alkaloids 60 ml 01/03/24 04:10 01/03/24 04:16 Belladonna Alkaloids 60 Ml Ml PO 01/03/24 04:11 60 ml ONCE ONE Administration Iopamidol 80 ml 01/03/24 04:51 01/03/24 04:52 Iopamidol-370 (76%);100ml Bottle IV 01/03/24 04:52 80 ml ONCE ONE Administration Ketorolac Tromethamine 30 mg 01/03/24 04:10 01/03/24 04:16 Ketorolac 30mg/Ml Vial IV 01/03/24 04:11 30 mg ONCE ONE Administration Ondansetron HCl 4 mg 01/03/24 04:10 01/03/24 04:15 Ondansetron 4mg/2ml Vial IV 01/03/24 04:11 4 mg ONCE ONE Administration Sodium Chloride 50 ml 01/03/24 04:51 01/03/24 04:52 0.9 % Sodium Chloride 50 Ml Vial IV 01/03/24 04:52 50 ml ONCE ONE Administration Sodium Chloride 10 ml 01/03/24 04:51 01/03/24 04:52 Sodium Chloride 0.9% 10ml Syr (Rad Only) IV 01/03/24 04:52 10 ml ONCE ONE Administration ORDERS Category Date Time Status CT angio abdomen pelvis Stat Cat Scan 01/03/24 04:11 Completed CBC w/Auto Diff [Complete Blood Count Auto Diff] Stat Lab 01/03/24 03:50 Completed CMP [Comprehensive Metabolic Panel] Stat Lab 01/03/24 03:50 Completed HIV (1&2) Antibody Rapid Stat Lab 01/03/24 03:50 Completed Hep C Ab with Reflex to RNA Stat Lab 01/03/24 03:50 Received Lipase Stat Lab 01/03/24 03:50 Completed Troponin I Q3H Lab 01/03/24 03:50 Completed Troponin I Q3H Lab 01/03/24 06:23 Completed HEART Score HEART Score: 2 Medical Decision Narrative: 53-year-old male with history of ALS presents for acute epigastric abdominal pain radiating to the back. History was obtained via interactive discussion with patient, family, chart review. On arrival, patient is afebrile, hemodynamically stable, satting appropriately, alert, oriented x4, GCS 15, moving all extremities spontaneously. Full physical exam performed and significant for minimal epigastric tenderness, generalized muscle weakness stable from baseline. Differential includes but is not limited to gastritis, gastroenteritis, pancreatitis, cholecystitis, choledocholithiasis, mesenteric ischemia, acute aortic syndrome, ACS Patient was given Tylenol Toradol for symptomatic management and correction of underlying abnormalities. Workup initiated including CBC CMP lipase troponin x 2 CTA abdomen pelvis. On re-evaluation, patient remains afebrile, HD stable. He reports marked symptomatic improvement. Laboratory workup independently interpreted by me and significant for minimally elevated alk phos, otherwise normal lipase, normal creatinine, no significant electrolyte derangements, negative troponin, no leukocytosis. Imaging independently interpreted by me and significant for enlarged gallbladder without pericholecystic fluid or wall thickening, no acute aortic pathology, no pancreatitis. 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 See radiology read for full review of final results. Given patient history, exam and workup, patient's presentation most likely represents abdominal of uncertain etiology, could be related to acid reflux/stomach irritation. No evidence of acute cholecystitis, pancreatitis or mesenteric pathology. Repeat troponin negative. These findings were communicated with patient. He was discharged in stable condition with return precautions. Procedures <Levar Eng MD - Last Filed: 01/03/24 23:29> Risk/Benefits of Procedure(s) Were Explained: Yes Critical Care <Levar Eng MD - Last Filed: 01/03/24 23:29> Critical Care Time Critical Care Time: No
[2024-01-03 07:37] LABS: Troponin I < 0.01 ng/ml (0.00-0.034)
[2024-01-03 07:48] VITALS: BP 129/88; PULSE 80; RESP 16; TEMP 36.6; O2SAT 95
[2024-01-04 05:27] LABS: HCV Ab Non Reactive (Non Reactive)
== END 2024-01-03 07:55 | disposition home or self-care (01) ==
PROVIDERS: Emergency Provider Emergency Medicine; PCP Nurse Practitioner Family
DX: K82.8 Other specified diseases of gallbladder (principal); R10.9 Unspecified abdominal pain; M54.9 Dorsalgia, unspecified
CPT/HCPCS: 74174; 80053; 83690; 84484; 85025; 86803; 87389; 93005; 96374; 96375; 99285; J0131; J1885; J2405; Q9967